=== PATIENT | female | born 1985 | race Caucasian/White ===

== ENCOUNTER 2018-03-06 21:24 | Emergency (ER) | payer SELFPAY ==
[~2018-03-06] VITALS: Ht 165.1 cm; Wt 90.7 kg
[~2018-03-06 21:24] MED LIST: BENZ100C PO; CEPH-264 PO; IBUP-1060 PO; PROAIR HFA8.5 GM INH
[2018-03-06 21:30] VITALS: BP 134/69
--- NOTE | 2018-03-06 21:38 | PHYS DOC ---
Past Medical History Past Medical History: No Pertinent History Past Surgical History: Tubal ligation Alcohol Use: None Drug Use: None Adult General Chief Complaint Chief Complaint: BACK PAIN OR INJURY HPI HPI Patient is a 32 year old F who presents with lower back pain that radiates to her right leg. She denies injury. Onset about 2-3 days ago. Hx of back pain that is usually relieved by ibuprofen and biofreeze. No relief from OTC at this time. She denies loss of bladder or bowel control. Denies groin numbness. Review of Systems Review of Systems Constitutional: Denies fever or chills [] Eyes: Denies change in visual acuity, redness, or eye pain [] HENT: Denies nasal congestion or sore throat [] Respiratory: Denies cough or shortness of breath [] Cardiovascular: No additional information not addressed in HPI [] GI: Denies abdominal pain, nausea, vomiting, bloody stools or diarrhea [] : Denies dysuria or hematuria [] Musculoskeletal: Denies back pain or joint pain [] Integument: Denies rash or skin lesions [] Neurologic: Denies headache, focal weakness or sensory changes [] Endocrine: Denies polyuria or polydipsia [] All other systems were reviewed and found to be within normal limits, except as documented in this note. Current Medications Current Medications Current Medications Medications (Trade) Dose Ordered Sig/Emerald Start Time Stop Time Status Last Admin Dose Admin Acetaminophen/ Hydrocodone Bitart (Lortab 5/325) 1 tab 1X ONCE 03/06/18 22:00 03/06/18 22:01 DC Cyclobenzaprine HCl (Flexeril) 10 mg 1X ONCE 03/06/18 22:00 03/06/18 22:01 DC Allergies Allergies Allergies Coded Allergies Type Severity Reaction Last Updated Verified Sulfa (Sulfonamide Antibiotics) Allergy Unknown 10/26/13 Yes Physical Exam Physical Exam Constitutional: Well developed, well nourished, no acute distress, non-toxic appearance. [] HENT: Normocephalic, atraumatic, bilateral external ears normal, oropharynx moist, no oral exudates, nose normal. [] Eyes: PERRLA, EOMI, conjunctiva normal, no discharge. [] Neck: Normal range of motion, no tenderness, supple, no stridor. [] Cardiovascular:Heart rate regular rhythm, no murmur [] Lungs & Thorax: Bilateral breath sounds clear to auscultation [] Abdomen: Bowel sounds normal, soft, no tenderness, no masses, no pulsatile masses. [] Skin: Warm, dry, no erythema, no rash. [] Back: No tenderness, no CVA tenderness. [] Extremities: No tenderness, no cyanosis, no clubbing, ROM intact, no edema. [] Neurologic: Alert and oriented X 3, normal motor function, normal sensory function, no focal deficits noted. [] Psychologic: Affect normal, judgement normal, mood normal. [] EKG EKG [] Radiology/Procedures Radiology/Procedures [] Course & Med Decision Making Course & Med Decision Making Pertinent Labs and Imaging studies reviewed. (See chart for details) Plan: norco rx, flexeril rx, f/u with PCP, return precautions reviewed Dragon Disclaimer Dragon Disclaimer This electronic medical record was generated, in whole or in part, using a voice recognition dictation system. Departure Departure Impression: Primary Impression: Back pain with sciatica Disposition: HOME, SELF-CARE Condition: GOOD Referrals: NO PCP (PCP) Patient Instructions: Back Exercises, Back Pain, Adult Scripts Cyclobenzaprine Hcl (CYCLOBENZAPRINE HCL) 10 Mg Tablet 1 TAB PO TID, #30 TAB Prov: KERI AZEVEDO APRN 03/06/18 Hydrocodone/Apap 5-325 (NORCO 5-325 TABLET) 1 Each Tablet 1 TAB PO PRN Q6HRS PRN for PAIN, #14 TAB 0 Refills Prov: KERI AZEVEDO APRN 03/06/18 KERI AZEVEDO APRN Mar 06, 2018 21:38
[2018-03-06] MEDS ORDERED: HYDR-971 PO (21:44)
[2018-03-06] MEDS ORDERED: CYCL10TA2 PO (21:48)
[2018-03-06] MEDS ORDERED: HYDROcodone/APAP 5/325MG 1 TAB TABLET PO ONE (22:00)
[2018-03-06] MEDS ORDERED: CYCLOBENZAPRINE 10 MG TABLET. PO ONE (22:00)
== END 2018-03-06 22:21 | disposition home or self-care (01) ==
LOC: ER 21:24
DX: M54.41 Lumbago with sciatica, right side (principal); Z88.2 Allergy status to sulfonamides; Z98.51 Tubal ligation status
CPT/HCPCS: 99283

== ENCOUNTER 2018-04-07 16:52 | Emergency (ER) | payer SELFPAY ==
[~2018-04-07] VITALS: Ht 165.1 cm; Wt 90.7 kg
[~2018-04-07 16:52] MED LIST changes: +CYCL10TA2 PO; +HYDR-971 PO
[2018-04-07] MEDS ORDERED: IV NORMAL SALINE 1000ML BAG 1,000 ML IV ONE (17:15)
--- NOTE | 2018-04-07 17:23 | PHYS DOC ---
Past Medical History Past Medical History: Kidney Stone Past Surgical History: Tubal ligation, Other Additional Past Surgical Histo: URETERAL STENT Alcohol Use: None Drug Use: None Adult General Chief Complaint Chief Complaint: WEAKNESS/GENERALIZED HPI HPI 32-year-old female presents to ER with complaints of nausea and vomiting, intermittent dizziness, decreased appetite, and generalized fatigue. Patient reports symptoms started this morning. Pt denies CP/palpitations. She reports vomiting x1 today denying diarrhea, fever/chills, or abd pain. Pt denies urinary sxs- she reports she had right side urinary stent placed 1 month ago at [facility] for kidney stone. She reports she was on antibiotics for 10 days for UTI following stent placement. She reports her son has been sick with an ear infection otherwise no other family members have been sick. Patient reports her boyfriend has been in the hospital since Sunday and she has been staying in the hospital with him- he was admitted for compartment syndrome and she denies he has been ill with sxs similar to her's. LMP 1-1/2 weeks ago denies vaginal symptoms. Review of Systems Review of Systems Constitutional: Denies fever or chills. Reports generalized fatigue Eyes: Denies change in visual acuity, redness, or eye pain [] HENT: Denies nasal congestion or sore throat [] Respiratory: Denies cough or shortness of breath [] Cardiovascular: Denies CP/palpitations GI: Denies bloody stools or diarrhea. Reports rt lower abd pain which has been ongoing x1 mo with no acute changes. Reports nausea with 1 episode of vomiting. : Denies dysuria or hematuria. Denies vaginal sxs Musculoskeletal: Reports rt lower back pain for past 1 mo. prior to urinary stent placement- denies acute changes. Denies joint pain [] Integument: Denies rash, swelling, or skin lesions [] Neurologic: Denies headache, focal weakness or sensory changes. Reports dizziness All other systems were reviewed and found to be within normal limits, except as documented in this note. Current Medications Current Medications Current Medications Medications (Trade) Dose Ordered Sig/Emerald Start Time Stop Time Status Last Admin Dose Admin Ceftriaxone Sodium 50 ml @ 100 mls/hr 1X ONCE 04/07/18 19:00 04/07/18 19:29 DC 04/07/18 19:13 100 MLS/HR Dexamethasone Sodium Phosphate (Decadron) 8 mg 1X ONCE 04/07/18 18:45 04/07/18 18:46 DC 04/07/18 18:55 8 MG Diphenhydramine HCl (Benadryl) 12.5 mg 1X ONCE 04/07/18 18:45 04/07/18 18:46 DC 04/07/18 18:55 12.5 MG Ondansetron HCl (Zofran) 4 mg 1X ONCE 04/07/18 18:45 04/07/18 18:46 DC 04/07/18 18:55 4 MG Sodium Chloride 1,000 ml @ 1,000 mls/hr 1X ONCE 04/07/18 17:15 04/07/18 18:14 DC 04/07/18 17:26 1,000 MLS/HR Allergies Allergies Allergies Coded Allergies Type Severity Reaction Last Updated Verified Sulfa (Sulfonamide Antibiotics) Allergy Unknown 10/26/13 Yes Physical Exam Physical Exam Constitutional: Well developed, well nourished, no acute distress, non-toxic appearance. Appears fatigued on initial exam. Clear speech HENT: Normocephalic, atraumatic, mucous membranes pink/moist, no oral exudates, nose normal. [] Eyes: PERRLA, no nystagmus, conjunctiva normal, no discharge. [] Neck: Normal range of motion, no tenderness, supple Cardiovascular:Heart rate regular rhythm, no murmur [] Lungs & Thorax: Bilateral breath sounds clear to auscultation. Resp. equal/ nonlabored Abdomen: Bowel sounds normal, soft- nondistended, tender to palp. rt lower abd which she reports has been ongoing x1 mo with no acute changes, no masses Skin: Warm, dry, no erythema, no rash. [] Back: No tenderness, no CVA tenderness. [] Extremities: No tenderness, no cyanosis, no clubbing, ROM intact, no edema. [] Neurologic: Alert and oriented X 3, normal motor function, normal sensory function, no focal deficits noted. [] Psychologic: Affect normal, judgement normal, mood normal. [] Current Patient Data Vital Signs Vital Signs Date Time Temp Pulse Resp B/P (MAP) Pulse Ox O2 Delivery O2 Flow Rate FiO2 04/07/18 20:04 63 04/07/18 19:34 97 04/07/18 16:58 97.7 20 120/88 (99) Room Air 97.7 Lab Values Laboratory Tests Test 04/07/18 17:18 04/07/18 18:29 04/07/18 18:36 White Blood Count 7.4 x10^3/uL (4.0-11.0) Red Blood Count 4.80 x10^6/uL (3.50-5.40) Hemoglobin 13.2 g/dL (12.0-15.5) Hematocrit 38.4 % (36.0-47.0) Mean Corpuscular Volume 80 fL (79-100) Mean Corpuscular Hemoglobin 28 pg (25-35) Mean Corpuscular Hemoglobin Concent 35 g/dL (31-37) Red Cell Distribution Width 12.8 % (11.5-14.5) Platelet Count 241 x10^3/uL (140-400) Neutrophils (%) (Auto) 52 % (31-73) Lymphocytes (%) (Auto) 39 % (24-48) Monocytes (%) (Auto) 6 % (0-9) Eosinophils (%) (Auto) 2 % (0-3) Basophils (%) (Auto) 1 % (0-3) Neutrophils # (Auto) 3.9 x10^3uL (1.8-7.7) Lymphocytes # (Auto) 2.9 x10^3/uL (1.0-4.8) Monocytes # (Auto) 0.5 x10^3/uL (0.0-1.1) Eosinophils # (Auto) 0.1 x10^3/uL (0.0-0.7) Basophils # (Auto) 0.1 x10^3/uL (0.0-0.2) Sodium Level 142 mmol/L (136-145) Potassium Level 4.0 mmol/L (3.5-5.1) Chloride Level 102 mmol/L (98-107) Carbon Dioxide Level 31 mmol/L (21-32) Anion Gap 9 (6-14) Blood Urea Nitrogen 9 mg/dL (7-20) Creatinine 0.9 mg/dL (0.6-1.0) Estimated GFR (Cockcroft-Gault) 73.5 BUN/Creatinine Ratio 10 (6-20) Glucose Level 95 mg/dL (70-99) Calcium Level 9.9 mg/dL (8.5-10.1) Total Bilirubin 0.3 mg/dL (0.2-1.0) Aspartate Amino Transferase (AST) 24 U/L (15-37) Alanine Aminotransferase (ALT) 44 U/L (14-59) Alkaline Phosphatase 66 U/L (46-116) Total Protein 8.0 g/dL (6.4-8.2) Albumin 3.7 g/dL (3.4-5.0) Albumin/Globulin Ratio 0.9 (1.0-1.7) L Urine Collection Type Unknown Urine Color Yellow Urine Clarity Cloudy Urine pH 6.0 Urine Specific [place] 1.020 Urine Protein 30 mg/dL (NEG-TRACE) Urine Glucose (UA) Negative mg/dL (NEG) Urine Ketones (Stick) Negative mg/dL (NEG) Urine Blood Large (NEG) Urine Nitrite Positive (NEG) Urine Bilirubin Negative (NEG) Urine Urobilinogen Dipstick 1.0 mg/dL (0.2 mg/dL) Urine Leukocyte Esterase Large (NEG) Urine RBC 11-20 /HPF (0-2) Urine WBC Tntc /HPF (0-4) Urine Squamous Epithelial Cells Mod /LPF Urine Bacteria Many /HPF (0-FEW) Urine Mucus Mod /LPF POC Urine HCG, Qualitative Hcg negative (Negative) Laboratory Tests 04/07/18 17:18 Laboratory Tests 04/07/18 17:18 Microbiology 04/07/18 Urine Culture - Preliminary, Resulted 04/07/18 Urine Culture Result 1 (GRIFFIN) - Preliminary, Resulted EKG EKG [] Radiology/Procedures Radiology/Procedures [] Course & Med Decision Making Course & Med Decision Making Pertinent Labs reviewed. (See chart for details) 1831: Discussed lab results with pt- unremarkable results WBCs NL at 7.4 and renal function NL with BUN/Cr 9/0.9. Pt is A&Ox3 and reports she now has DAVIS which is similar to previous migraines she has experienced denying any focal neuro deficits- she has clear speech and denies any vision changes. Denies increased dizziness reporting her sxs had improved w/IV flds. Pt is ambulatory to with steady gait. UA being obtained. Will provide pt with dose of Decadron and benedryl while in ER for headache- she is preferring no toradol as she is scheduled for surgery on Sun. for stent removal. 1850: Discussed UA results with pt- positive nitrates, lg blood/leuks with micro showing 11-20 RBCs and tntc WBCs- some contamination with squamous/ bacteria noted. Discussed giving dose of IV Rocephin while in ER for UTI- discussed complicated UTI w/pt as she had recent ureteral stent placed and dx'd kidney stone. Admission was offered for further care/evaluation- she is not wanting admission as she has a young son to care for. Discussed plans for Keflex Rx for home and she is to call her urologist Dr. Sood at [facility] in morning. Pt advised that if sxs worsen she is to return to ER or with any concerns. Pt reports her dizziness improved following IV flds but she does continue to have DAVIS- with some relief following IV Decadron/Benedryl. Discharge instructions were discussed and education provided on s&s to return to ER for. Pt's case and plan of care was discussed with Dr. Lopez. Ar Disclaimer Ar Disclaimer This electronic medical record was generated, in whole or in part, using a voice recognition dictation system. Departure Departure Impression: Primary Impression: Dizziness Additional Impressions: Headache UTI (urinary tract infection) Disposition: HOME, SELF-CARE Condition: STABLE Referrals: IFRAH WHITAKER (PCP) Patient Instructions: Dizziness, Migraine Headache, Urinary Tract Infection Additional Instructions: Drink plenty of water. Tylenol for fever/pain control. Call your urologist first thing in morning to discuss UTI and Emergency Department visit. You were given dose of Rocephin while in the ER. Return to ER if symptoms worsen or with concerns. Scripts Cephalexin (KEFLEX) 500 Mg Capsule 1 CAP PO BID, #14 CAP 0 Refills Prov: TOLU MEDEROS APRN 04/07/18 Attending Signature Attending Signature I have reviewed the PA/SUPERVISOR ELECTROLYTIC TINNING's note and plan of care. I was available for consultation as needed during the patient's visit in the emergency department. I agree with the clinical impression, plan, and disposition. Problem Qualifiers TOLU MEDEROS APRN Apr 07, 2018 17:23 ELIZABETH OLPEZ DO Apr 10, 2018 11:16
[2018-04-07 17:28] LABS: BASO # 0.1 x10^3/uL (0.0-0.2); BASO % 1 % (0-3); EOS # 0.1 x10^3/uL (0.0-0.7); EOS % 2 % (0-3); HEMATOCRIT 38.4 % (36.0-47.0); HEMOGLOBIN 13.2 g/dL (12.0-15.5); LYMPH # 2.9 x10^3/uL (1.0-4.8); LYMPH % 39 % (24-48); MEAN CORPUSCULAR HEMOGLOBIN 28 pg (25-35); MEAN CORPUSCULAR HGB CONC 35 g/dL (31-37); MEAN CORPUSCULAR VOLUME 80 fL (79-100); MONO # 0.5 x10^3/uL (0.0-1.1); MONO % 6 % (0-9); NEUT # 3.9 x10^3uL (1.8-7.7); NEUT % 52 % (31-73); PLATELET COUNT 241 x10^3/uL (140-400); RED CELL DISTRIBUTION WIDTH 12.8 % (11.5-14.5); WHITE BLOOD COUNT 7.4 x10^3/uL (4.0-11.0)
[2018-04-07 17:34] LABS: CALCIUM 9.9 mg/dL (8.5-10.1); CREATININE 0.9 mg/dL (0.6-1.0); GFR 73.5
--- NOTE | 2018-04-07 17:37 | EKG ---
[facility] [address] [place] [address] Test Date: 2018-04-07 Test Time: 17:33:45 Pat Name: MIGEL WALDROP Department: Room: Gender: F Licensed Insurance Agent: TW : [id number] Requested By: TOLU MEDEROS Order Number: [id number] Reading MD: German Guerin Measurements Intervals [place] Rate: 68 P: 0 OK: 150 QRS: -1 QRSD: 94 T: 6 QT: 416 QTc: 447 Interpretive Statements SINUS RHYTHM LEFTWARD AXIS Electronically Signed On 04-09-2018 11:04:26 CDT by German Guerin
[2018-04-07 17:40] LABS: ALBUMIN 3.7 g/dL (3.4-5.0); ALBUMIN/GLOBULIN RATIO 0.9 (1.0-1.7); TOTAL BILIRUBIN 0.3 mg/dL (0.2-1.0)
[2018-04-07 18:44] LABS: BILIRUBIN,URINE NEGATIVE (NEG); CLARITY,URINE CLOUDY; COLOR,URINE YELLOW; NITRITE,URINE POSITIVE (NEG); PROTEIN,URINE 30 mg/dL (NEG-TRACE)
[2018-04-07] MEDS ORDERED: diphenhydrAMINE 50 MG/ML VIAL IVP ONE (18:45)
[2018-04-07] MEDS ORDERED: ONDANSETRON PF 4 MG/2 ML VIAL. IV ONE (18:45)
[2018-04-07] MEDS ORDERED: DEXAMETHASONE SOD PHOS 20 MG/5 ML VIAL. IV ONE (18:45)
[2018-04-07 18:55] LABS: BACTERIA,URINE MANY /HPF (0-FEW); WBC,URINE TNTC /HPF (0-4)
[2018-04-07 18:56] LABS: SQUAMOUS EPITHELIAL CELL,UR MOD /LPF
[2018-04-07] MEDS ORDERED: CEPH-264 PO (19:35)
[2018-04-07 20:04] VITALS: BP 114/67
== END 2018-04-07 20:14 | disposition home or self-care (01) ==
LOC: ER 16:52
DX: N39.0 Urinary tract infection, site not specified (principal); R42 Dizziness and giddiness; R51 Headache; Z98.51 Tubal ligation status; Z87.442 Personal history of urinary calculi; Z88.2 Allergy status to sulfonamides
CPT/HCPCS: 36415; 80053; 81001; 81025; 85025; 93005; 96361; 96365; 96375; 99285; J0690; J1100; J1200; J2405; J7030

== ENCOUNTER 2018-04-09 07:46 | Emergency (ER) | payer SELFPAY ==
[~2018-04-09] VITALS: Ht 165.1 cm; Wt 90.7 kg
--- NOTE | 2018-04-09 08:06 | PHYS DOC ---
Past Medical History Past Medical History: Kidney Stone Past Surgical History: Tubal ligation, Other Additional Past Surgical Histo: URETERAL STENT Alcohol Use: None Drug Use: None Adult General Chief Complaint Chief Complaint: DIZZY/LIGHT HEADED HPI HPI Patient is a 32 year old female who presents with generalized weakness. Patient was seen in this emergency department 2 days ago and diagnosed with a urinary tract infection. She was discharged home on Keflex. Patient states she is also being followed at [facility] for known renal lithiasis. She is scheduled to have intervention tomorrow to remove a stone. Today, she presents to the emergency department complaining of generalized weakness. She has no complaints of focal weakness. Patient states she simply doesn't, "feel good." She does not complain of flank pain or back pain. She does not complain of urinary symptoms. She has no pelvic pain. No fever or chills. No cough. All pain. Review of Systems Review of Systems Constitutional: Denies fever or chills Eyes: Denies change in visual acuity HENT: Denies nasal congestion Respiratory: Denies cough or shortness of breath Cardiovascular: No additional information not addressed in HPI GI: Denies abdominal pain : Denies hematuria Musculoskeletal: Denies back pain Integument: Denies rash Neurologic: Denies headache Endocrine: Denies polyuria All other systems were reviewed and found to be within normal limits, except as documented in this note. Current Medications Current Medications Current Medications Medications (Trade) Dose Ordered Sig/Emerald Start Time Stop Time Status Last Admin Dose Admin Levofloxacin (Levaquin) 500 mg 1X ONCE 04/09/18 09:00 04/09/18 09:02 DC Sodium Chloride 1,000 ml @ 1,000 mls/hr 1X ONCE 04/09/18 08:00 04/09/18 08:59 DC 04/09/18 08:20 1,000 MLS/HR Allergies Allergies Allergies Coded Allergies Type Severity Reaction Last Updated Verified Sulfa (Sulfonamide Antibiotics) Allergy Unknown 10/26/13 Yes Physical Exam Physical Exam Constitutional: Well developed, well nourished, no acute distress, non-toxic appearance HENT: Normocephalic, atraumatic, bilateral external ears normal, oropharynx moist Eyes: PERRLA, EOMI, conjunctiva normal Neck: Normal range of motion, no tenderness Cardiovascular:Heart rate regular rhythm, no murmur Lungs & Thorax: Bilateral breath sounds clear to auscultation Abdomen: Bowel sounds normal, soft, no tenderness Skin: Warm, dry, no erythema, no rash Back: No tenderness, no CVA tenderness Extremities: No edema Neurologic: Alert and oriented X 3 Psychologic: Affect normal Current Patient Data Vital Signs Vital Signs Date Time Temp Pulse Resp B/P (MAP) Pulse Ox O2 Delivery O2 Flow Rate FiO2 04/09/18 08:25 82 14 97 04/09/18 07:52 98.0 114/75 (88) Room Air 98.0 Lab Values Laboratory Tests Test 04/09/18 08:04 04/09/18 08:13 04/09/18 08:20 Urine Color Yellow Urine Clarity Clear Urine pH 6.0 Urine Specific [place] 1.020 Urine Protein Negative mg/dL (NEG-TRACE) Urine Glucose (UA) Negative mg/dL (NEG) Urine Ketones (Stick) Negative mg/dL (NEG) Urine Blood Negative (NEG) Urine Nitrite Negative (NEG) Urine Bilirubin Negative (NEG) Urine Urobilinogen Dipstick 0.2 mg/dL (0.2 mg/dL) Urine Leukocyte Esterase Large (NEG) Urine RBC Fobs /HPF (0-2) Urine WBC Tntc /HPF (0-4) Urine Squamous Epithelial Cells Mod /LPF Urine Bacteria Mod /HPF (0-FEW) Urine Mucus Slight /LPF POC Urine HCG, Qualitative Hcg negative (Negative) White Blood Count 6.8 x10^3/uL (4.0-11.0) Red Blood Count 4.89 x10^6/uL (3.50-5.40) Hemoglobin 13.2 g/dL (12.0-15.5) Hematocrit 39.3 % (36.0-47.0) Mean Corpuscular Volume 81 fL (79-100) Mean Corpuscular Hemoglobin 27 pg (25-35) Mean Corpuscular Hemoglobin Concent 34 g/dL (31-37) Red Cell Distribution Width 12.6 % (11.5-14.5) Platelet Count 222 x10^3/uL (140-400) Neutrophils (%) (Auto) 56 % (31-73) Lymphocytes (%) (Auto) 34 % (24-48) Monocytes (%) (Auto) 8 % (0-9) Eosinophils (%) (Auto) 1 % (0-3) Basophils (%) (Auto) 2 % (0-3) Neutrophils # (Auto) 3.8 x10^3uL (1.8-7.7) Lymphocytes # (Auto) 2.3 x10^3/uL (1.0-4.8) Monocytes # (Auto) 0.5 x10^3/uL (0.0-1.1) Eosinophils # (Auto) 0.1 x10^3/uL (0.0-0.7) Basophils # (Auto) 0.1 x10^3/uL (0.0-0.2) Sodium Level 141 mmol/L (136-145) Potassium Level 4.0 mmol/L (3.5-5.1) Chloride Level 103 mmol/L (98-107) Carbon Dioxide Level 31 mmol/L (21-32) Anion Gap 7 (6-14) Blood Urea Nitrogen 12 mg/dL (7-20) Creatinine 0.9 mg/dL (0.6-1.0) Estimated GFR (Cockcroft-Gault) 73.5 Glucose Level 91 mg/dL (70-99) Calcium Level 9.4 mg/dL (8.5-10.1) Laboratory Tests 04/09/18 08:20 Laboratory Tests 04/09/18 08:20 EKG EKG [] Radiology/Procedures Radiology/Procedures [] Course & Med Decision Making Course & Med Decision Making Pertinent Labs and Imaging studies reviewed. (See chart for details) Patient is evaluated for generalized weakness in the setting of a UTI and known kidney stone. She is nontoxic in appearance. Her physical exam is otherwise unremarkable. She is in no distress. She had a CBC and BMP 2 days ago. Her urine was noted to be infected at that time. She was treated with Keflex. Today , will recheck BMP given her complaint of weakness. Will also check urinalysis. Will give IV fluids. 09:15: Patient feeling improved. Again, her CBC and BMP did not reveal any acute findings. She does continue to have pyuria despite being on antibiotics. Urine culture is added to her lab panel. Patient endorses subjectively that she has a kidney stone. A better antibiotic choice for UTI in the setting of stone is Levaquin. She is given 1 dose in the ER and will be discharged home on the same. She has follow-up with urology tomorrow at [facility]. She is advised to come back to the ER for any new or worsening symptoms. Ar Disclaimer Ar Disclaimer This electronic medical record was generated, in whole or in part, using a voice recognition dictation system. Departure Departure Referrals: IFRAH WHITAKER BC (PCP) ALDAIR MULLINS DO Apr 09, 2018 08:06
[2018-04-09] MEDS: IV NORMAL SALINE 1000ML BAG 1,000 ML IV ONE (08:20)
[2018-04-09 08:25] LABS: BILIRUBIN,URINE NEGATIVE (NEG); CLARITY,URINE CLEAR; COLOR,URINE YELLOW; NITRITE,URINE NEGATIVE (NEG); PROTEIN,URINE NEGATIVE (NEG-TRACE); UROBILINOGEN,URINE 0.2 mg/dL (0.2 mg/dL)
[2018-04-09 08:29] LABS: SQUAMOUS EPITHELIAL CELL,UR MOD /LPF
[2018-04-09 08:29] LABS: BASO # 0.1 x10^3/uL (0.0-0.2); BASO % 2 % (0-3); EOS # 0.1 x10^3/uL (0.0-0.7); EOS % 1 % (0-3); HEMATOCRIT 39.3 % (36.0-47.0); HEMOGLOBIN 13.2 g/dL (12.0-15.5); LYMPH # 2.3 x10^3/uL (1.0-4.8); LYMPH % 34 % (24-48); MEAN CORPUSCULAR HEMOGLOBIN 27 pg (25-35); MEAN CORPUSCULAR HGB CONC 34 g/dL (31-37); MEAN CORPUSCULAR VOLUME 81 fL (79-100); MONO # 0.5 x10^3/uL (0.0-1.1); MONO % 8 % (0-9); NEUT # 3.8 x10^3uL (1.8-7.7); NEUT % 56 % (31-73); PLATELET COUNT 222 x10^3/uL (140-400); RED BLOOD COUNT 4.89 x10^6/uL (3.50-5.40); RED CELL DISTRIBUTION WIDTH 12.6 % (11.5-14.5); WHITE BLOOD COUNT 6.8 x10^3/uL (4.0-11.0)
[2018-04-09 08:30] LABS: BACTERIA,URINE MOD /HPF (0-FEW); WBC,URINE TNTC /HPF (0-4)
[2018-04-09 08:31] LABS: RBC,URINE FOBS /HPF (0-2)
[2018-04-09 08:37] LABS: CALCIUM 9.4 mg/dL (8.5-10.1); CREATININE 0.9 mg/dL (0.6-1.0); GFR 73.5
[2018-04-09] MEDS ORDERED: LEVO500T59 PO (09:13)
[2018-04-09 09:23] VITALS: BP 108/68
== END 2018-04-09 09:40 | disposition home or self-care (01) ==
LOC: ER 07:46
DX: N20.0 Calculus of kidney (principal); R42 Dizziness and giddiness; R53.1 Weakness; Z87.442 Personal history of urinary calculi; Z98.51 Tubal ligation status; Z88.2 Allergy status to sulfonamides
CPT/HCPCS: 36415; 80048; 81001; 81025; 85025; 87086; 96360; 99284; J7030

== ENCOUNTER 2018-06-10 14:58 | Emergency (ER) | payer OTHER ==
[~2018-06-10] VITALS: Ht 165.1 cm; Wt 88.5 kg
[~2018-06-10 14:58] MED LIST changes: +HYDR-3164 PO; -HYDR-971 PO; +LEVO500T59 PO
[2018-06-10 15:17] VITALS: BP 106/65
[2018-06-10] MEDS ORDERED: FLUT9.9S NS (15:25)
[2018-06-10] MEDS ORDERED: CEPH-264 PO (15:25)
--- NOTE | 2018-06-10 15:26 | PHYS DOC ---
Past Medical History Past Medical History: Kidney Stone, UTI Past Surgical History: Tubal ligation, Other Additional Past Surgical Histo: URETERAL STENT Alcohol Use: None Drug Use: None Adult General Chief Complaint Chief Complaint: EARACHE/EAR PAIN HPI HPI Patient is a 32 year old female who presents with bilateral earaches and a runny nose. The patient states that she has a long history of chronic ear infections. She denies any drainage from the ear canals, fever or sore throat. She denies any nausea or vomiting. Review of Systems Review of Systems Constitutional: Denies fever or chills [] Eyes: Denies change in visual acuity, redness, or eye pain [] HENT: See history of present illness Respiratory: Denies cough or shortness of breath [] Cardiovascular: No additional information not addressed in HPI [] Neurologic: Denies headache, focal weakness or sensory changes [] Endocrine: Denies polyuria or polydipsia [] All other systems were reviewed and found to be within normal limits, except as documented in this note. Allergies Allergies Allergies Coded Allergies Type Severity Reaction Last Updated Verified Sulfa (Sulfonamide Antibiotics) Allergy Unknown 10/26/13 Yes Physical Exam Physical Exam Constitutional: Well developed, well nourished, no acute distress, non-toxic appearance. [] HENT: Normocephalic, atraumatic, right tympanic membrane is normal, left tympanic membrane is erythematous, oropharynx moist, no oral exudates, nose normal. [] Eyes: PERRLA, EOMI, conjunctiva normal, no discharge. [] Neck: Normal range of motion, no tenderness, supple, no stridor. [] Cardiovascular:Heart rate regular rhythm, no murmur [] Lungs & Thorax: Bilateral breath sounds clear to auscultation [] Neurologic: Alert and oriented X 3, normal motor function, normal sensory function, no focal deficits noted. [] Psychologic: Affect normal, judgement normal, mood normal. [] Current Patient Data Vital Signs Vital Signs Date Time Temp Pulse Resp B/P (MAP) Pulse Ox O2 Delivery O2 Flow Rate FiO2 06/10/18 15:17 97.9 77 16 106/65 (79) 100 Room Air 97.9 EKG EKG [] Radiology/Procedures Radiology/Procedures [] Course & Med Decision Making Course & Med Decision Making Pertinent Labs and Imaging studies reviewed. (See chart for details) [] Dragon Disclaimer Dragon Disclaimer This electronic medical record was generated, in whole or in part, using a voice recognition dictation system. Departure Departure Impression: Primary Impression: Otitis media Additional Impression: Upper respiratory infection Referrals: IFRAH WHITAKER BC (PCP) Patient Instructions: Otitis Media, Adult, Upper Respiratory Infection, Adult Additional Instructions: Use the medications as directed. You may use [id number] cough and cold medication to help with symptom control. Follow-up with your primary care provider in one week if not improving or return to the emergency department if worsening. Scripts Fluticasone Propionate (Flonase Allergy Relief) 9.9 Ml [place].susp 2 SPRAYS NS DAILY for upper respiratory infection, #1 BOTTLE Prov: CUBA WILLS APRN 06/10/18 Cephalexin (KEFLEX) 500 Mg Capsule 1 CAP PO TID for infection, #30 CAP Prov: CUBA WILLS APRN 06/10/18 Attending Signature Attending Signature I have reviewed the PA/DIAGNOSTIC SALES SPECIALIST's note and plan of care. I was available for consultation as needed during the patient's visit in the emergency department. I agree with the clinical impression, plan, and disposition. Problem Qualifiers CUBA WILLS APRN Jun 10, 2018 15:26 ELIZABETH LOPEZ DO Jun 10, 2018 22:13
== END 2018-06-10 15:40 | disposition home or self-care (01) ==
LOC: ER 14:58
DX: H66.93 Otitis media, unspecified, bilateral (principal); J06.9 Acute upper respiratory infection, unspecified; Z88.2 Allergy status to sulfonamides
CPT/HCPCS: 99283

== ENCOUNTER 2018-09-04 19:32 | Emergency (ER) | payer OTHER ==
[~2018-09-04] VITALS: Ht 165.1 cm; Wt 88.5 kg
[~2018-09-04 19:32] MED LIST changes: +ALBU2.5V8 INH; +FLUT9.9S NS; -PROAIR HFA8.5 GM INH
[2018-09-04 20:29] VITALS: BP 143/63
[2018-09-04] MEDS ORDERED: HYDR-3164 PO (20:43)
[2018-09-04] MEDS ORDERED: IBUP-1007 PO (20:43)
--- NOTE | 2018-09-04 20:44 | PHYS DOC ---
Past Medical History Past Medical History: Kidney Stone, UTI Past Surgical History: Tubal ligation, Other Additional Past Surgical Histo: URETERAL STENT Alcohol Use: None Drug Use: None Adult General Chief Complaint Chief Complaint: DENTAL PROBLEM HPI HPI Patient is a 32 year old female who presents with right upper and right lower dental caries that are painful left cold. Patient states she can get in with her dentist next week. Patient states been having pain for the last 3 days. Denies fever. Review of Systems Review of Systems Constitutional: Denies fever or chills [] Eyes: Denies change in visual acuity, redness, or eye pain [] HENT: Dental caries. Denies nasal congestion or sore throat [] Respiratory: Denies cough or shortness of breath [] Cardiovascular: No additional information not addressed in HPI [] GI: Denies abdominal pain, nausea, vomiting, bloody stools or diarrhea [] : Denies dysuria or hematuria [] Musculoskeletal: Denies back pain or joint pain [] Integument: Denies rash or skin lesions [] Neurologic: Denies headache, focal weakness or sensory changes [] All other systems were reviewed and found to be within normal limits, except as documented in this note. Allergies Allergies Allergies Coded Allergies Type Severity Reaction Last Updated Verified Sulfa (Sulfonamide Antibiotics) Allergy Unknown 10/26/13 Yes Physical Exam Physical Exam Constitutional: Well developed, well nourished, no acute distress, non-toxic appearance. [] HENT: Normocephalic, atraumatic, bilateral external ears normal, oropharynx moist, no oral exudates, nose normal. Right upper and lower molar dental caries. Slightly inflamed gum line. [] Eyes: PERRLA, EOMI, conjunctiva normal, no discharge. [] Neck: Normal range of motion, no tenderness, supple, no stridor. [] Cardiovascular:Heart rate regular rhythm, no murmur [] Lungs & Thorax: Bilateral breath sounds clear to auscultation [] Abdomen: Bowel sounds normal, soft, no tenderness, no masses, no pulsatile masses. [] Skin: Warm, dry, no erythema, no rash. [] Back: No tenderness, no CVA tenderness. [] Extremities: No tenderness, no cyanosis, no clubbing, ROM intact, no edema. [] Neurologic: Alert and oriented X 3, normal motor function, normal sensory function, no focal deficits noted. [] Psychologic: Affect normal, judgement normal, mood normal. [] EKG EKG [] Radiology/Procedures Radiology/Procedures [] Course & Med Decision Making Course & Med Decision Making Patient is a 32 year old female who presents with right upper and right lower dental caries that are painful left cold. Patient states she can get in with her dentist next week. Patient states been having pain for the last 3 days. Denies fever. No facial swelling. The gumline is slightly inflamed the patient has right upper and lower dental caries the back molars that are black. Afebrile. Patient given prescription for [place] and she is to follow-up with her dentist next week as scheduled. Dragon Disclaimer Dragon Disclaimer This electronic medical record was generated, in whole or in part, using a voice recognition dictation system. Departure Departure Impression: Primary Impression: Pain, dental Disposition: HOME, SELF-CARE Condition: STABLE Referrals: IFRAH WHITAKER (PCP) Patient Instructions: Dental Caries Additional Instructions: Follow up with dentist as planned. Take medication as prescribed. Scripts Ibuprofen (IBUPROFEN) 600 Mg Tablet 600 MG PO PRN Q6HRS PRN for INFLAMMATION, #15 TAB Prov: EMMANUEL MOORE APRN 09/04/18 Hydrocodone/Apap 5-325 (NORCO 5-325 TABLET) 1 Each Tablet 1 TAB PO PRN Q6HRS PRN for PAIN, #10 TAB 0 Refills Prov: EMMANUEL MOORE APRN 09/04/18 EMMANUEL MOORE APRN Sep 04, 2018 20:44
== END 2018-09-04 20:52 | disposition home or self-care (01) ==
LOC: ER 19:32
DX: K08.89 Other specified disorders of teeth and supporting structures (principal); K02.9 Dental caries, unspecified; Z88.2 Allergy status to sulfonamides
CPT/HCPCS: 99283

== ENCOUNTER 2019-07-01 19:36 | Emergency (ER) | payer SELFPAY ==
[~2019-07-01] VITALS: Ht 167.6 cm; Wt 83.9 kg
[~2019-07-01 19:36] MED LIST changes: +IBUP-1007 PO
[2019-07-01 19:50] VITALS: BP 123/81
--- NOTE | 2019-07-01 20:22 | PHYS DOC ---
Past Medical History Past Medical History: Kidney Stone, UTI Past Surgical History: Tubal ligation, Other Additional Past Surgical Histo: URETERAL STENT Alcohol Use: None Drug Use: None Adult General Chief Complaint Chief Complaint: DENTAL PROBLEM HPI HPI Patient is a 33 year old female who presents with right upper dental pain has been ongoing for 3 days. The patient states she has a dental appointment scheduled on Sunday. The patient also states been having runny nose and congestion. Reports her pain as 8 out of 10 in severity and sharp. Review of Systems Review of Systems Constitutional: Denies fever or chills [] Eyes: Denies change in visual acuity, redness, or eye pain [] HENT: Reports nasal congestion and runny nose. Reports Dental pain. Respiratory: Denies cough or shortness of breath [] Cardiovascular: No additional information not addressed in HPI [] GI: Denies abdominal pain, nausea, vomiting, bloody stools or diarrhea [] : Denies dysuria or hematuria [] Musculoskeletal: Denies back pain or joint pain [] Integument: Denies rash or skin lesions [] Neurologic: Denies headache, focal weakness or sensory changes [] Endocrine: Denies polyuria or polydipsia [] Complete systems were reviewed and found to be within normal limits, except as documented in this note. Allergies Allergies Allergies Coded Allergies Type Severity Reaction Last Updated Verified Sulfa (Sulfonamide Antibiotics) Allergy Unknown 10/26/13 Yes Physical Exam Physical Exam Constitutional: Well developed, well nourished, no acute distress, non-toxic appearance. [] HENT: Normocephalic, atraumatic, bilateral external ears normal, oropharynx moist, no oral exudates, nose normal. Third molar has filling that appears to be not flush. Eyes: PERRLA, EOMI, conjunctiva normal, no discharge. [] Neck: Normal range of motion, no tenderness, supple, no stridor. [] Cardiovascular:Heart rate regular rhythm, no murmur [] Lungs & Thorax: Bilateral breath sounds clear to auscultation [] Skin: Warm, dry, no erythema, no rash. [] Neurologic: Alert and oriented X 3, normal motor function, normal sensory function, no focal deficits noted. [] Psychologic: Affect normal, judgement normal, mood normal. [] Current Patient Data Vital Signs Vital Signs Date Time Temp Pulse Resp B/P (MAP) Pulse Ox O2 Delivery O2 Flow Rate FiO2 07/01/19 19:50 98.7 80 16 123/81 (95) 97 Room Air 98.7 EKG EKG [] Radiology/Procedures Radiology/Procedures [] Course & Med Decision Making Course & Med Decision Making Pertinent Labs and Imaging studies reviewed. (See chart for details) A medical screening exam was performed on this patient and the patient does not appear to be having a medical emergency. Her symptoms are not of sufficient severity and within reasonable medical probability it is unlikely the absence of immediate medical attention would result in placing the health of the individual (or, with respect to a woman, the health of the woman or her unborn child) in serious jeopardy, serious impairment to bodily functions, or serious dysfunction of any bodily organ or part. If , the patient is not in labor Dragon Disclaimer Dragon Disclaimer This electronic medical record was generated, in whole or in part, using a voice recognition dictation system. Departure Departure Impression: Primary Impression: Encounter for medical screening examination Additional Impression: Pain, dental Disposition: 01 HOME, SELF-CARE Condition: STABLE Referrals: NO PCP (PCP) Patient Instructions: Medical Screening Exam Additional Instructions: Thank you for visiting [facility]. We appreciate you trusting us with your care. If any additional problems come up don't hesitate to return to visit us. Please follow up with your primary care provider so they can plan additional care if needed and know about the problem that you had. If symptoms worsen come back to the Emergency Department. Any concerning symptoms that start such as chest pain, shortness of air, weakness or numbness on one side of the body, running high fevers or any other concerning symptoms return to the ER. Problem Qualifiers ELIZABETH CASTILLO APRN Jul 01, 2019 20:22
== END 2019-07-01 20:28 | disposition home or self-care (01) ==
LOC: ER 19:36
DX: K08.89 Other specified disorders of teeth and supporting structures (principal); Z98.51 Tubal ligation status; Z87.442 Personal history of urinary calculi; Z88.2 Allergy status to sulfonamides
CPT/HCPCS: 99281-25

== ENCOUNTER 2019-07-30 20:14 | Emergency (ER) | payer SELFPAY ==
--- NOTE | 2019-07-30 21:55 | PHYS DOC ---
Past Medical History Past Medical History: Kidney Stone, UTI Past Surgical History: Tubal ligation, Other Additional Past Surgical Histo: URETERAL STENT Alcohol Use: None Drug Use: None Adult General Chief Complaint Chief Complaint: ABDOMINAL PAIN HPI HPI Patient is a 33 year old female with history of kidneys stones presents with right flank pain intermittent 5 days. Pain is described as sharp, radiates to groin in last for minutes to hours at a time and is rated moderate to severe. Social with nausea and decreased appetite. Patient denies abdominal tenderness. No fever chills or sweats. Does report decreased urine output. No urinary frequency urgency or burning. No hematuria. Last menstrual period was 2 days ago. Patient states symptoms are similar to prior kidney stones. [] Review of Systems Review of Systems Review symptoms as per history of present illness. All other systems were reviewed and found to be within normal limits, except as documented in this note. Current Medications Current Medications Current Medications Medications (Trade) Dose Ordered Sig/Emerald Start Time Stop Time Status Last Admin Dose Admin Ceftriaxone Sodium (Rocephin) 1 gm 1X ONCE 07/30/19 23:00 07/30/19 23:01 07/30/19 22:52 1 GM Morphine Sulfate (Morphine Sulfate) 4 mg 1X ONCE 07/30/19 22:15 07/30/19 22:16 DC 07/30/19 22:02 4 MG Ondansetron HCl (Zofran) 4 mg 1X ONCE 07/30/19 22:15 07/30/19 22:16 DC 07/30/19 22:01 4 MG Sodium Chloride 1,000 ml @ 1,000 mls/hr 1X ONCE 07/30/19 22:15 07/30/19 23:14 07/30/19 22:01 1,000 MLS/HR Allergies Allergies Allergies Coded Allergies Type Severity Reaction Last Updated Verified Sulfa (Sulfonamide Antibiotics) Allergy Unknown 10/26/13 Yes Physical Exam Physical Exam Constitutional: Well developed, well nourished, moderate discomfort secondary pain. [] HENT: Normocephalic, atraumatic, bilateral external ears normal, oropharynx moist, no oral exudates, nose normal. [] Eyes: PERRLA, EOMI, conjunctiva normal, no discharge. [] Neck: Normal range of motion, no tenderness, supple, no stridor. [] Cardiovascular:Heart rate regular rhythm, no murmur [] Lungs & Thorax: Bilateral breath sounds clear to auscultation [] Abdomen: Bowel sounds normal, soft, no tenderness. [] Skin: Warm, dry, no erythema, no rash. [] Back: No tenderness, No CVA tenderness. [] Extremities: No tenderness, no edema. [] Neurologic: Alert and oriented X 3, normal motor function, normal sensory function, no focal deficits noted. [] Psychologic: Affect normal, judgement normal, mood normal. [] Current Patient Data Vital Signs Vital Signs Date Time Temp Pulse Resp B/P (MAP) Pulse Ox O2 Delivery O2 Flow Rate FiO2 07/30/19 22:02 22 99 Room Air 07/30/19 20:45 97.8 69 127/54 (78) 97.8 Lab Values Laboratory Tests Test 07/30/19 20:15 07/30/19 20:34 07/30/19 21:00 Urine Collection Type Unknown Urine Color Yellow Urine Clarity Clear Urine pH 7.0 Urine Specific [place] 1.025 Urine Protein Negative mg/dL (NEG-TRACE) Urine Glucose (UA) Negative mg/dL (NEG) Urine Ketones (Stick) Negative mg/dL (NEG) Urine Blood Negative (NEG) Urine Nitrite Negative (NEG) Urine Bilirubin Negative (NEG) Urine Urobilinogen Dipstick 0.2 mg/dL (0.2 mg/dL) Urine Leukocyte Esterase Large (NEG) Urine RBC 0 /HPF (0-2) Urine WBC 20-40 /HPF (0-4) Urine Squamous Epithelial Cells Mod /LPF Urine Bacteria Few /HPF (0-FEW) Urine Mucus Slight /LPF POC Urine HCG, Qualitative Hcg negative (Negative) White Blood Count 6.5 x10^3/uL (4.0-11.0) Red Blood Count 4.49 x10^6/uL (3.50-5.40) Hemoglobin 12.6 g/dL (12.0-15.5) Hematocrit 36.7 % (36.0-47.0) Mean Corpuscular Volume 82 fL (79-100) Mean Corpuscular Hemoglobin 28 pg (25-35) Mean Corpuscular Hemoglobin Concent 34 g/dL (31-37) Red Cell Distribution Width 13.3 % (11.5-14.5) Platelet Count 191 x10^3/uL (140-400) Neutrophils (%) (Auto) 57 % (31-73) Lymphocytes (%) (Auto) 32 % (24-48) Monocytes (%) (Auto) 8 % (0-9) Eosinophils (%) (Auto) 3 % (0-3) Basophils (%) (Auto) 1 % (0-3) Neutrophils # (Auto) 3.7 x10^3/uL (1.8-7.7) Lymphocytes # (Auto) 2.1 x10^3/uL (1.0-4.8) Monocytes # (Auto) 0.5 x10^3/uL (0.0-1.1) Eosinophils # (Auto) 0.2 x10^3/uL (0.0-0.7) Basophils # (Auto) 0.0 x10^3/uL (0.0-0.2) Sodium Level 141 mmol/L (136-145) Potassium Level 3.7 mmol/L (3.5-5.1) Chloride Level 107 mmol/L (98-107) Carbon Dioxide Level 31 mmol/L (21-32) Anion Gap 3 (6-14) L Blood Urea Nitrogen 14 mg/dL (7-20) Creatinine 0.7 mg/dL (0.6-1.0) Estimated GFR (Cockcroft-Gault) 97.6 BUN/Creatinine Ratio 20 (6-20) Glucose Level 87 mg/dL (70-99) Calcium Level 8.7 mg/dL (8.5-10.1) Total Bilirubin 0.2 mg/dL (0.2-1.0) Aspartate Amino Transferase (AST) 24 U/L (15-37) Alanine Aminotransferase (ALT) 27 U/L (14-59) Alkaline Phosphatase 61 U/L (46-116) Total Protein 6.8 g/dL (6.4-8.2) Albumin 3.6 g/dL (3.4-5.0) Albumin/Globulin Ratio 1.1 (1.0-1.7) Laboratory Tests 07/30/19 21:00 Laboratory Tests 07/30/19 21:00 EKG EKG [] Radiology/Procedures Radiology/Procedures [CT abdomen pelvis:] Course & Med Decision Making Course & Med Decision Making Pertinent Labs and Imaging studies reviewed. (See chart for details) [Symptoms similar to prior kidney stones. IV fluids pain medication antibiotics given. CT abdomen and pelvis ordered.] Ar Disclaimer Dragon Disclaimer This electronic medical record was generated, in whole or in part, using a voice recognition dictation system. Departure Departure Impression: Primary Impression: Acute right flank pain Additional Impression: UTI (urinary tract infection) Disposition: HOME, SELF-CARE Condition: IMPROVED Referrals: NO PCP (PCP) Patient Instructions: Flank Pain, [id number] Additional Instructions: Please increase fluids and take Tylenol for pain and Flexeril as needed for additional relief. Follow-up with your PCP in 2-3 days for reevaluation if symptoms persist Scripts Cyclobenzaprine Hcl (CYCLOBENZAPRINE HCL) 10 Mg Tablet 10 MG PO TID, #15 TAB Prov: ADELINA HOLLINGSWORTH DO 07/30/19 Problem Qualifiers ADELINA HOLLINGSWORTH DO Jul 30, 2019 21:55
[2019-07-30 22:02] LABS: BASO % 1 % (0-3); EOS # 0.2 x10^3/uL (0.0-0.7); EOS % 3 % (0-3); HEMATOCRIT 36.7 % (36.0-47.0); HEMOGLOBIN 12.6 g/dL (12.0-15.5); LYMPH # 2.1 x10^3/uL (1.0-4.8); LYMPH % 32 % (24-48); MEAN CORPUSCULAR HEMOGLOBIN 28 pg (25-35); MEAN CORPUSCULAR HGB CONC 34 g/dL (31-37); MEAN CORPUSCULAR VOLUME 82 fL (79-100); MONO # 0.5 x10^3/uL (0.0-1.1); MONO % 8 % (0-9); NEUT # 3.7 x10^3/uL (1.8-7.7); NEUT % 57 % (31-73); PLATELET COUNT 191 x10^3/uL (140-400); RED BLOOD COUNT 4.49 x10^6/uL (3.50-5.40); RED CELL DISTRIBUTION WIDTH 13.3 % (11.5-14.5); WHITE BLOOD COUNT 6.5 x10^3/uL (4.0-11.0)
[2019-07-30 22:03] LABS: BILIRUBIN,URINE NEGATIVE (NEG); CLARITY,URINE CLEAR; COLOR,URINE YELLOW; NITRITE,URINE NEGATIVE (NEG); PROTEIN,URINE NEGATIVE (NEG-TRACE); UROBILINOGEN,URINE 0.2 mg/dL (0.2 mg/dL)
[2019-07-30 22:08] LABS: SQUAMOUS EPITHELIAL CELL,UR MOD /LPF
[2019-07-30 22:09] LABS: BACTERIA,URINE FEW /HPF (0-FEW); RBC,URINE 0 /HPF (0-2); WBC,URINE 20-40 /HPF (0-4)
[2019-07-30 22:10] LABS: CALCIUM 8.7 mg/dL (8.5-10.1); CREATININE 0.7 mg/dL (0.6-1.0); GFR 97.6; POTASSIUM 3.7 mmol/L (3.5-5.1)
[2019-07-30] MEDS ORDERED: ONDANSETRON PF 4 MG/2 ML VIAL. IVP ONE (22:15)
[2019-07-30] MEDS ORDERED: MORPHINE SULFATE 4 MG/ML VIAL. IV ONE (22:15)
[2019-07-30] MEDS ORDERED: IV NORMAL SALINE 1000ML BAG 1,000 ML IV ONE (22:15)
[2019-07-30 22:16] LABS: ALBUMIN 3.6 g/dL (3.4-5.0); ALBUMIN/GLOBULIN RATIO 1.1 (1.0-1.7); TOTAL BILIRUBIN 0.2 mg/dL (0.2-1.0); TOTAL PROTEIN 6.8 g/dL (6.4-8.2)
--- NOTE | 2019-07-30 22:32 | RAD ---
Exam: CT abdomen and pelvis without contrast INDICATION: Right flank pain TECHNIQUE: Sequential axial images through the abdomen and pelvis obtained without IV contrast. Sagittal and coronal reformatted images were reconstructed from the axial data and reviewed. Comparisons: None FINDINGS: Heart size is normal. No pericardial effusion. Strandy opacities at the dependent portion the lungs likely representing atelectasis. No pleural effusion. Evaluation of solid organs is limited secondary to noncontrast technique. Liver, spleen, pancreas, gallbladder and adrenals are unremarkable. No perinephric inflammation or hydronephrosis. No renal or ureteral calculi. Bladder is partially distended and appears thin-walled. Uterus is not enlarged. There is a 4.6 cm cystic lesion in the left adnexa, likely ovarian in etiology. Trace free fluid noted in the pelvis. No free intra-abdominal air. Large and small bowel are unremarkable. Appendix is normal. No free intra-abdominal air or fluid. No obstruction. Abdominal aorta has a normal course and caliber. No enlarged abdominal lymph nodes are identified. No suspicious osseous lesions or acute fractures. IMPRESSION: 1. No renal or ureteral calculi. No evidence for obstructive uropathy. 2. Normal appendix. 3. A 4.6 cm cystic lesion left adnexa, likely ovarian in etiology however incompletely characterized on CT. Exposure: One or more of the following in the visualized dose reduction techniques were utilized for this examination: 1. Automated exposure control 2. Adjustment of the MA and/or KV according to patient size 3. Use of iterative of reconstructive technique Electronically signed by: Milo Concepcion MD (07/30/2019 10:28 PM) [facility]
[2019-07-30] MEDS ORDERED: cefTRIAXone IV Push 1 GM VIAL. IVP ONE (23:00)
[2019-07-30] MEDS ORDERED: CYCL10TA2 PO (23:05)
[2019-07-30 23:18] VITALS: BP 93/42
[2019-07-30] MEDS ORDERED: KETOROLAC 15 MG/ML VIAL. IVP ONE (23:30)
== END 2019-07-30 23:31 | disposition home or self-care (01) ==
LOC: ER 20:14
DX: N39.0 Urinary tract infection, site not specified (principal); R10.9 Unspecified abdominal pain; R11.0 Nausea; R63.0 Anorexia; Z87.442 Personal history of urinary calculi; Z98.51 Tubal ligation status; Z98.890 Other specified postprocedural states; Z88.2 Allergy status to sulfonamides; Z79.899 Other long term (current) drug therapy
CPT/HCPCS: 36415; 74176; 80053; 81001; 81025; 85025; 87086; 96374; 96375; 99285; J0696; J1885; J2270; J2405; J7030

== ENCOUNTER 2019-09-15 15:56 | Emergency (ER) | payer SELFPAY ==
[~2019-09-15] VITALS: Ht 165.1 cm; Wt 91.5 kg
[2019-09-15 16:35] VITALS: BP 135/82
[2019-09-15] MEDS ORDERED: IBUPROFEN 200 MG TABLET. PO ONE (17:00)
--- NOTE | 2019-09-15 17:03 | PHYS DOC ---
Past Medical History Past Medical History: Kidney Stone, UTI Past Surgical History: Tubal ligation, Other Additional Past Surgical Histo: URETERAL STENT Smoking Status: Never Smoker Alcohol Use: None Drug Use: None Adult General Chief Complaint Chief Complaint: SORE THROAT HPI HPI Patient is a 33 year old female who presents with nasal congestion, sore throat, body aches, fever 2 days. Patient's son was recently diagnosed with influenza A. Patient states last took ibuprofen was 10:00 this morning. Rates the pain 9 out of 10. Review of Systems Review of Systems Constitutional: fever or chills [] HENT: nasal congestion or sore throat [] Respiratory: cough or denies shortness of breath [] Musculoskeletal: Bodyaches. Denies back pain or joint pain [] All other systems were reviewed and found to be within normal limits, except as documented in this note. Current Medications Current Medications Current Medications Medications (Trade) Dose Ordered Sig/Emerald Start Time Stop Time Status Last Admin Dose Admin Ibuprofen (Motrin) 600 mg 1X ONCE 09/15/19 17:00 09/15/19 17:02 DC 09/15/19 17:00 600 MG Allergies Allergies Allergies Coded Allergies Type Severity Reaction Last Updated Verified Sulfa (Sulfonamide Antibiotics) Allergy Intermediate 07/30/19 Yes Physical Exam Physical Exam Constitutional: Well developed, well nourished, no acute distress, non-toxic appearance. [] HENT: Normocephalic, atraumatic, bilateral external ears normal, oropharynx moist, no oral exudates, nose normal. [] Eyes: PERRLA, EOMI, conjunctiva normal, no discharge. [] Neck: Normal range of motion, no tenderness, supple, no stridor. [] Cardiovascular:Heart rate regular rhythm, no murmur [] Lungs & Thorax: Bilateral breath sounds clear to auscultation [] Abdomen: Bowel sounds normal, soft, no tenderness, no masses, no pulsatile masses. [] Skin: Warm, dry, no erythema, no rash. [] Back: No tenderness, no CVA tenderness. [] Extremities: No tenderness, no cyanosis, no clubbing, ROM intact, no edema. [] Neurologic: Alert and oriented X 3, normal motor function, normal sensory function, no focal deficits noted. [] Psychologic: Affect normal, judgement normal, mood normal. Normal Physical Exam [] Current Patient Data Vital Signs Vital Signs Date Time Temp Pulse Resp B/P (MAP) Pulse Ox O2 Delivery O2 Flow Rate FiO2 09/15/19 16:35 98.5 110 14 135/82 (99) 99 Room Air 98.5 Lab Values Laboratory Tests Test 09/15/19 17:00 Influenza Type A Antigen Positive (NEGATIVE) Influenza Type B Antigen Negative (NEGATIVE) EKG EKG [] Radiology/Procedures Radiology/Procedures [] Course & Med Decision Making Course & Med Decision Making Pertinent Labs and Imaging studies reviewed. (See chart for details) Alert and oriented. Speaks in full clear sentences. Skin pink warm and dry. Lungs are clear to auscultation in all lobes. Throat is pink without swelling or exudates. Bilateral Tympanic White. No trismus. Uvula midline. Patient denies nausea, vomiting, abdominal pain, dizziness, headache, vision changes, numbness or tingling, chest pain, shortness of air, diarrhea. Influenza A positive. [] Dragon Disclaimer Dragon Disclaimer This electronic medical record was generated, in whole or in part, using a voice recognition dictation system. Departure Departure Impression: Primary Impression: Influenza A Disposition: HOME, SELF-CARE Condition: STABLE Referrals: NO PCP (PCP) Patient Instructions: Influenza, Adult Additional Instructions: Take Ibuprofen every 6-8 hours for your pain and fever. Drink plenty of fluids. Follow up with primary care provider. Take medications with food. Scripts Ondansetron (ONDANSETRON ODT) 4 Mg Tab.rapdis 1 TAB PO PRN Q6-8HRS, #16 TAB Prov: EMMANUEL MOORE UPPER INSPECTOR 09/15/19 Oseltamivir Phosphate (TAMIFLU) 75 Mg Capsule 1 CAP PO BID, #10 CAP Prov: EMMANUEL MOORE UPPER INSPECTOR 09/15/19 EMMANUEL MOORE UPPER INSPECTOR Sep 15, 2019 17:03
[2019-09-15 17:33] LABS: INFLUENZA A PATIENT POSITIVE (NEGATIVE); INFLUENZA B PATIENT NEGATIVE (NEGATIVE)
[2019-09-15] MEDS ORDERED: ONDA4TAB12 PO (17:43)
[2019-09-15] MEDS ORDERED: OSEL75CA PO (17:43)
== END 2019-09-15 17:45 | disposition home or self-care (01) ==
LOC: ER 15:56
DX: J10.1 Influenza due to other identified influenza virus with other respiratory manifestations (principal); R09.81 Nasal congestion; Z87.442 Personal history of urinary calculi; Z98.51 Tubal ligation status; Z98.890 Other specified postprocedural states; Z88.2 Allergy status to sulfonamides
CPT/HCPCS: 87804; 99283

== ENCOUNTER 2020-03-09 13:18 | Emergency (ER) | payer SELFPAY ==
[~2020-03-09] VITALS: Ht 165.1 cm; Wt 81.8 kg
[~2020-03-09 13:18] MED LIST changes: +ONDA4TAB12 PO; +OSEL75CA PO
[2020-03-09 14:34] LABS: BASO # 0.1 x10^3/uL (0.0-0.2); BASO % 1 % (0-3); EOS # 0.1 x10^3/uL (0.0-0.7); EOS % 2 % (0-3); HEMATOCRIT 36.9 % (36.0-47.0); HEMOGLOBIN 12.5 g/dL (12.0-15.5); LYMPH # 2.1 x10^3/uL (1.0-4.8); LYMPH % 30 % (24-48); MEAN CORPUSCULAR HEMOGLOBIN 28 pg (25-35); MEAN CORPUSCULAR HGB CONC 34 g/dL (31-37); MEAN CORPUSCULAR VOLUME 81 fL (79-100); MONO # 0.6 x10^3/uL (0.0-1.1); MONO % 8 % (0-9); NEUT # 4.1 x10^3/uL (1.8-7.7); NEUT % 59 % (31-73); PLATELET COUNT 175 x10^3/uL (140-400); RED BLOOD COUNT 4.55 x10^6/uL (3.50-5.40)
[2020-03-09 14:36] LABS: BILIRUBIN,URINE NEGATIVE (NEG); CLARITY,URINE CLEAR; COLOR,URINE YELLOW; NITRITE,URINE NEGATIVE (NEG); PH,URINE 7.5 (<5.0-8.0); PROTEIN,URINE NEGATIVE (NEG-TRACE)
[2020-03-09 14:41] LABS: CALCIUM 9.1 mg/dL (8.5-10.1); CREATININE 0.9 mg/dL (0.6-1.0); GFR 72.6; POTASSIUM 3.9 mmol/L (3.5-5.1)
[2020-03-09] MEDS ORDERED: fentaNYL PF VIAL 100 MCG/2 ML VIAL IV ONE (14:45)
[2020-03-09] MEDS ORDERED: ONDANSETRON PF 4 MG/2 ML VIAL. IV ONE (14:45)
[2020-03-09] MEDS ORDERED: IV NORMAL SALINE 1000ML BAG 1,000 ML IV ONE (14:45)
[2020-03-09 14:47] LABS: ALBUMIN 3.8 g/dL (3.4-5.0); TOTAL BILIRUBIN 0.5 mg/dL (0.2-1.0); TOTAL PROTEIN 7.7 g/dL (6.4-8.2)
[2020-03-09 14:58] LABS: SQUAMOUS EPITHELIAL CELL,UR MOD /LPF
[2020-03-09 14:59] LABS: BACTERIA,URINE MODERATE /HPF (0-FEW); RBC,URINE 0 /HPF (0-2); WBC,URINE 20-40 /HPF (0-4)
[2020-03-09 15:02] VITALS: BP 102/56
[2020-03-09 15:03] LABS: U PREG PATIENT NEGATIVE (NEG)
[2020-03-09] MEDS ORDERED: IOHEXOL 300 MG/ML 100ML VIAL. IV ONE (15:15)
[2020-03-09] MEDS ORDERED: cefTRIAXone IV Push 1 GM VIAL. IVP ONE (15:15)
[2020-03-09] MEDS ORDERED: CONTRAST GIVEN. MC PRN (15:30)
--- NOTE | 2020-03-09 15:53 | RAD ---
CT ABD PELV W/ IV CONTRST ONLY History: Reason: RLQ abd pain / Spl. Instructions: IV OMNI 300 75 MLS / History: Technique: After the administration of intravenous contrast, CT imaging was performed of the abdomen and pelvis. Multiplanar images are reviewed. Exposure: One or more of the following individualized dose reduction techniques were utilized for this examination: 1. Automated exposure control 2. Adjustment of the mA and/or kV according to patient size 3. Use of iterative reconstruction technique. Comparison: July 30, 2019 Findings: Lower chest: No consolidation or pleural effusion. Abdomen and pelvis: Hepatic focal fatty infiltration along the falciform ligament. The spleen, adrenal glands, pancreas and gallbladder are unremarkable. No biliary ductal dilatation. Patent portal vein. Right renal cortical irregularity with peripheral calcification, unchanged. No hydronephrosis. No ureteral or urinary bladder calculus. Normal appendix. No evidence of bowel obstruction. No pathologic lymphadenopathy. Small pelvic ascites. Left adnexal cystic lesion measures 4.4 x 3.8 cm. Involuting follicle within the left ovary. Bones: No pathologic osseous lesions. Impression: 1. Left adnexal cystic lesion, may represent exophytic ovarian cyst or peritoneal inclusion cyst. Similar compared to prior. Ultrasound can further evaluate. 2. Small pelvic free fluid. Electronically signed by: Diony Denton DO (03/09/2020 3:51 PM) [facility]
[2020-03-09] MEDS ORDERED: CEPH-264 PO (16:35)
[2020-03-09] MEDS ORDERED: ONDA-84 PO (16:35)
--- NOTE | 2020-03-09 16:35 | PHYS DOC ---
Past Medical History Past Medical History: Kidney Stone, UTI Past Surgical History: Tubal ligation, Other Additional Past Surgical Histo: URETERAL STENT Smoking Status: Never Smoker Alcohol Use: None Drug Use: None General Adult EDM: Chief Complaint: ABDOMINAL PAIN HPI: HPI: Patient is a 34 year old female who presents to the emergency department with complaints of right lower quadrant and right flank pain for the last 3 days. She reports foul-smelling urine, headache, and increased urinary frequency. She denies any blood in her urine, difficulty urinating, or back pain. She reports that she did have a recent mild cough but denies any production of the cough. She denies any known exposure to mono tested positive for COVID-19. She also denies any shortness of breath, nausea, vomiting, fever, chills, sore throat, or decrease sense of taste or smell. She denies any irregular vaginal discharge, or vaginal bleeding. She currently rates her pain a 8 out of 10 on the pain scale, she denies any alleviating or exacerbating factors. Review of Systems: Review of Systems: Constitutional: Denies fever or chills. [] HENT: Denies nasal congestion or sore throat. [] Respiratory: Denies wheezing or shortness of breath; see HPI. [] Cardiovascular: Denies chest pain or edema. [] GI: Denies nausea, vomiting, bloody stools or diarrhea; see HPI. [] : See HPI Musculoskeletal: Denies back pain or joint pain. [] Integument: Denies rash. [] Neurologic: Denies headache Lymphatic: Denies swollen glands. [] Psychiatric: Denies depression or anxiety. [] Heart Score: Risk Factors: Risk Factors: DM, Current or recent (<one month) smoker, HTN, HLP, family history of CAD, obesity. Risk Scores: Score 0 - 3: 2.5% MACE over next 6 weeks - Discharge Home Score 4 - 6: 20.3% MACE over next 6 weeks - Admit for Clinical Observation Score 7 - 10: 72.7% MACE over next 6 weeks - Early Invasive Strategies Current Medications: Current Medications Medications (Trade) Dose Ordered Sig/Emerald Start Time Stop Time Status Last Admin Dose Admin Ceftriaxone Sodium (Rocephin) 1 gm 1X ONCE 03/09/20 15:15 03/09/20 15:16 DC 03/09/20 15:35 1 GM Fentanyl Citrate (Fentanyl 2ml Vial) 50 mcg 1X ONCE 03/09/20 14:45 03/09/20 14:46 DC 03/09/20 15:36 50 MCG Info (CONTRAST GIVEN -- Rx MONITORING) 1 each PRN DAILY PRN 03/09/20 15:30 03/11/20 15:29 Iohexol (Omnipaque 300 Mg/ml) 75 ml 1X ONCE 03/09/20 15:15 03/09/20 15:17 DC Ondansetron HCl (Zofran) 4 mg 1X ONCE 03/09/20 14:45 03/09/20 14:46 DC 03/09/20 15:35 4 MG Sodium Chloride 1,000 ml @ 1,000 mls/hr 1X ONCE 03/09/20 14:45 03/09/20 15:44 DC 03/09/20 15:36 1,000 MLS/HR Allergies: Allergies: Allergies Coded Allergies Type Severity Reaction Last Updated Verified Sulfa (Sulfonamide Antibiotics) Allergy Intermediate 07/30/19 Yes Physical Exam: PE: Constitutional: Well developed, well nourished, no acute distress, non-toxic appearance. [] HENT: Normocephalic, atraumatic, bilateral external ears normal, nose normal. [] Eyes: PERRLA, EOMI, conjunctiva normal, no discharge. [] Neck: Normal range of motion, no stridor. [] Cardiovascular:Heart rate regular rhythm Lungs & Thorax: Respirations even and unlabored, no retractions, no respiratory distress Abdomen: soft, right lower quadrant tenderness to palpation, positive McBurney's point tenderness, negative Rovsing's, positive psoas sign, no palpable mass Back: Right CVA tenderness Skin: Warm, dry, no erythema, no rash. [] Extremities: No cyanosis, ROM intact, no edema. [] Neurologic: Alert and oriented X 3, no focal deficits noted. [] Psychologic: Affect normal, judgement normal, mood normal. [] Current Patient Data: Labs: Laboratory Tests Test 03/09/20 14:24 White Blood Count 7.0 x10^3/uL (4.0-11.0) Red Blood Count 4.55 x10^6/uL (3.50-5.40) Hemoglobin 12.5 g/dL (12.0-15.5) Hematocrit 36.9 % (36.0-47.0) Mean Corpuscular Volume 81 fL (79-100) Mean Corpuscular Hemoglobin 28 pg (25-35) Mean Corpuscular Hemoglobin Concent 34 g/dL (31-37) Red Cell Distribution Width 13.0 % (11.5-14.5) Platelet Count 175 x10^3/uL (140-400) Neutrophils (%) (Auto) 59 % (31-73) Lymphocytes (%) (Auto) 30 % (24-48) Monocytes (%) (Auto) 8 % (0-9) Eosinophils (%) (Auto) 2 % (0-3) Basophils (%) (Auto) 1 % (0-3) Neutrophils # (Auto) 4.1 x10^3/uL (1.8-7.7) Lymphocytes # (Auto) 2.1 x10^3/uL (1.0-4.8) Monocytes # (Auto) 0.6 x10^3/uL (0.0-1.1) Eosinophils # (Auto) 0.1 x10^3/uL (0.0-0.7) Basophils # (Auto) 0.1 x10^3/uL (0.0-0.2) Urine Collection Type Unknown Urine Color Yellow Urine Clarity Clear Urine pH 7.5 (<5.0-8.0) Urine Specific [place] 1.020 (1.000-1.030) Urine Protein Negative mg/dL (NEG-TRACE) Urine Glucose (UA) Negative mg/dL (NEG) Urine Ketones (Stick) Negative mg/dL (NEG) Urine Blood Negative (NEG) Urine Nitrite Negative (NEG) Urine Bilirubin Negative (NEG) Urine Urobilinogen Dipstick 1.0 mg/dL (0.2 mg/dL) Urine Leukocyte Esterase Large (NEG) Urine RBC 0 /HPF (0-2) Urine WBC 20-40 /HPF (0-4) Urine Squamous Epithelial Cells Mod /LPF Urine Bacteria Moderate /HPF (0-FEW) Urine Mucus Mod /LPF Urine Test Negative (NEG) Sodium Level 141 mmol/L (136-145) Potassium Level 3.9 mmol/L (3.5-5.1) Chloride Level 105 mmol/L (98-107) Carbon Dioxide Level 28 mmol/L (21-32) Anion Gap 8 (6-14) Blood Urea Nitrogen 8 mg/dL (7-20) Creatinine 0.9 mg/dL (0.6-1.0) Estimated GFR (Cockcroft-Gault) 72.6 BUN/Creatinine Ratio 9 (6-20) Glucose Level 88 mg/dL (70-99) Calcium Level 9.1 mg/dL (8.5-10.1) Magnesium Level 2.0 mg/dL (1.8-2.4) Total Bilirubin 0.5 mg/dL (0.2-1.0) Aspartate Amino Transferase (AST) 21 U/L (15-37) Alanine Aminotransferase (ALT) 44 U/L (14-59) Alkaline Phosphatase 62 U/L (46-116) Total Protein 7.7 g/dL (6.4-8.2) Albumin 3.8 g/dL (3.4-5.0) Albumin/Globulin Ratio 1.0 (1.0-1.7) Lipase 72 U/L (73-393) L Laboratory Tests 03/09/20 14:24 Laboratory Tests 03/09/20 14:24 Vital Signs: Vital Signs Date Time Temp Pulse Resp B/P (MAP) Pulse Ox O2 Delivery O2 Flow Rate FiO2 03/09/20 15:36 16 98 03/09/20 14:02 98.6 57 110/60 (77) Room Air 98.6 EKG: EKG: [] Radiology/Procedures: Radiology/Procedures: PROCEDURE: CT ABD PELV W/ IV CONTRST ONLY CT ABD PELV W/ IV CONTRST ONLY History: Reason: RLQ abd pain / Spl. Instructions: IV OMNI 300 75 MLS / History: Technique: After the administration of intravenous contrast, CT imaging was performed of the abdomen and pelvis. Multiplanar images are reviewed. Exposure: One or more of the following individualized dose reduction techniques were utilized for this examination: 1. Automated exposure control 2. Adjustment of the mA and/or kV according to patient size 3. Use of iterative reconstruction technique. Comparison: July 30, 2019 Findings: Lower chest: No consolidation or pleural effusion. Abdomen and pelvis: Hepatic focal fatty infiltration along the falciform ligament. The spleen, adrenal glands, pancreas and gallbladder are unremarkable. No biliary ductal dilatation. Patent portal vein. Right renal cortical irregularity with peripheral calcification, unchanged. No hydronephrosis. No ureteral or urinary bladder calculus. Normal appendix. No evidence of bowel obstruction. No pathologic lymphadenopathy. Small pelvic ascites. Left adnexal cystic lesion measures 4.4 x 3.8 cm. Involuting follicle within the left ovary. Bones: No pathologic osseous lesions. Impression: 1. Left adnexal cystic lesion, may represent exophytic ovarian cyst or peritoneal inclusion cyst. Similar compared to prior. Ultrasound can further evaluate. 2. Small pelvic free fluid. [] Course & Med Decision Making: Course & Med Decision Making Pertinent Labs and Imaging studies reviewed. (See chart for details) 34-year-old female presents emergency department complaints of right flank pain UA is current concerning for 20-40 white blood cells, no red blood cells, many bacteria. The patient was given 1 g of IV Rocephin in the emergency department. CBC was unremarkable; CMP was unremarkable; Normal-appearing appendix on CT exam, no kidney stone present or hydronephrosis. There was a finding of a left adnexal cystic lesion and a small amount of pelvic free fluid with the CT scan the patient was advised of these incidental findings. A prescription was written for Keflex 500 mg p.o. 4 times daily for 7 days. Patient was encouraged to increase clear fluids, avoid bladder irritants, and follow-up with her primary care doctor in 1 to 2 days. I encouraged the patient to return to the emergency room if symptoms worsen [] [place] Disclaimer: Ar Disclaimer: This electronic medical record was generated, in whole or in part, using a voice recognition dictation system. Departure Departure Impression: Primary Impression: UTI (urinary tract infection) Qualified Codes: N30.00 - Acute cystitis without hematuria Disposition: HOME, SELF-CARE Condition: STABLE Referrals: NO PCP (PCP) Patient Instructions: Urinary Tract Infection, [id number] Additional Instructions: Fill prescription(s) and use as directed. Avoid bladder irritants such as caffeine, carbonation, and spicy foods. Increase clear fluids. Follow up with your primary care doctor if symptoms persist, return to the ER if symptoms worsen. Scripts Ondansetron Hcl (ONDANSETRON HCL) 4 Mg Tablet 1 TAB PO PRN Q6HRS PRN for NAUSEA/VOMITING for 3 Days, #10 TAB 0 Refills Prov: NADIR CORTEZ CERTIFIED HYPERBARIC TECHNOLOGIST 03/09/20 Cephalexin (KEFLEX) 500 Mg Capsule 500 MG PO QID for 7 Days, #28 CAP 0 Refills Prov: NADIR CORTEZ CERTIFIED HYPERBARIC TECHNOLOGIST 03/09/20 Justicifation of Admission Dx: Justifications for Admission: Justification of Admission Dx: N/A NADIR CORTEZ CERTIFIED HYPERBARIC TECHNOLOGIST Mar 09, 2020 16:35
== END 2020-03-09 16:47 | disposition home or self-care (01) ==
LOC: ER 13:18
DX: N30.00 Acute cystitis without hematuria (principal); Z98.51 Tubal ligation status; Z87.442 Personal history of urinary calculi; Z96.0 Presence of urogenital implants; Z88.2 Allergy status to sulfonamides
CPT/HCPCS: 36415; 74177; 80053; 81001; 81025; 83690; 83735; 85025; 87086; 96361; 96374; 96375; 99285; J0696; J2405; J3010; J7030

== ENCOUNTER 2020-12-28 18:46 | Emergency (ER) | payer MEDICAID ==
[~2020-12-28] VITALS: Ht 165.1 cm; Wt 97.0 kg
[~2020-12-28 18:46] MED LIST changes: +ONDA-84 PO
--- NOTE | 2020-12-28 18:55 | PHYS DOC ---
Past Medical History Past Medical History: Kidney Stone, UTI Past Surgical History: Tubal ligation, Other Additional Past Surgical Histo: URETERAL STENT Smoking Status: Never Smoker Alcohol Use: None Drug Use: None General Adult EDM: Chief Complaint: HEADACHE HPI: HPI: Patient is a 34-year-old female presenting via EMS for migraine headache. Reports onset was 12 hours prior. Has history of migraines, states this feels similar to past episodes and over left side of head. States she feels dehydrated, has been outside in the weather more than usual. Cites migraine headache, visual disturbances, worsened pain with loud noises and reports being thirsty. She has not taken anything for this today. Nothing known makes better. Timing of symptoms has been constant since onset and thus, ongoing symptoms prompted her to call EMS for transport to our facility. Patient has no significant past medical issues besides migraines, is not on any daily medications, denies tobacco, alcohol and/or illicit drug abuse Review of Systems: Review of Systems: Fourteen body systems of review of systems have been reviewed. See HPI for pertinent positives and negative responses, other aaron all other systems are negative, non-pertinent or non-contributory Heart Score: C/O Chest Pain: No HEART Score for Chest Pain: HEART Score for Chest Pain Response (Comments) Value Age < 45 0 Risk Factors No Risk Factors 0 Total 0 Risk Factors: Risk Factors: DM, Current or recent (<one month) smoker, HTN, HLP, family history of CAD, obesity. Risk Scores: Score 0 - 3: 2.5% MACE over next 6 weeks - Discharge Home Score 4 - 6: 20.3% MACE over next 6 weeks - Admit for Clinical Observation Score 7 - 10: 72.7% MACE over next 6 weeks - Early Invasive Strategies Allergies: Allergies: Allergies Coded Allergies Type Severity Reaction Last Updated Verified Sulfa (Sulfonamide Antibiotics) Allergy Intermediate 07/30/19 Yes Physical Exam: PE: Constitutional: Well developed, well nourished, in moderate distress due to pain although non-toxic in appearance. HENT: Normocephalic, atraumatic, bilateral external ears normal, oropharynx moist, no oral exudates, nose normal. Eyes: PERRLA, EOMI, conjunctiva normal, no discharge. Neck: Normal range of motion, no tenderness, supple, no stridor. Cardiovascular: Heart rate regular, sinus rhythm, no murmurs rubs or gallops Lungs & Thorax: Bilateral breath sounds clear to auscultation Abdomen: Bowel sounds normal, soft, no tenderness, no masses, no pulsatile masses. Nonsurgical abdomen, no peritoneal signs Skin: Warm, dry, no erythema, no rash. Back: No tenderness, no CVA tenderness. Extremities: No tenderness, no cyanosis, no clubbing, ROM intact, no edema. Neurologic: Alert and oriented X 3, cranial nerves II through XII intact, normal motor & sensory function, no focal deficits noted. Psychologic: Tearful affect, anxious mood Current Patient Data: Labs: Laboratory Tests Test 12/28/20 18:48 White Blood Count 10.2 x10^3/uL Red Blood Count 4.64 x10^6/uL Hemoglobin 12.4 g/dL Hematocrit 36.7 % Mean Corpuscular Volume 79 fL Mean Corpuscular Hemoglobin 27 pg Mean Corpuscular Hemoglobin Concent 34 g/dL Red Cell Distribution Width 14.0 % Platelet Count 212 x10^3/uL Neutrophils (%) (Auto) 69 % Lymphocytes (%) (Auto) 21 % Monocytes (%) (Auto) 8 % Eosinophils (%) (Auto) 1 % Basophils (%) (Auto) 1 % Neutrophils # (Auto) 7.0 x10^3/uL Lymphocytes # (Auto) 2.2 x10^3/uL Monocytes # (Auto) 0.8 x10^3/uL Eosinophils # (Auto) 0.1 x10^3/uL Basophils # (Auto) 0.1 x10^3/uL Sodium Level 142 mmol/L Potassium Level 4.1 mmol/L Chloride Level 106 mmol/L Carbon Dioxide Level 26 mmol/L Anion Gap 10 Blood Urea Nitrogen 8 mg/dL Creatinine 0.8 mg/dL Estimated GFR (Cockcroft-Gault) 83.1 Glucose Level 100 mg/dL Calcium Level 9.2 mg/dL Current Medications Medications (Trade) Dose Ordered Sig/Emerald Route PRN Reason Start Time Stop Time Status Last Admin Dose Admin Ketorolac Tromethamine (Toradol 15mg Vial) 15 mg 1X ONCE IVP 12/28/20 19:00 12/28/20 19:15 DC 12/28/20 19:13 Prochlorperazine Edisylate (Compazine) 10 mg 1X ONCE IV 12/28/20 19:00 12/28/20 19:01 DC 12/28/20 19:13 Diphenhydramine HCl (Benadryl) 25 mg 1X ONCE IVP 12/28/20 19:00 12/28/20 19:01 DC 12/28/20 19:13 Sodium Chloride 1,000 ml @ 1,000 mls/hr 1X ONCE IV 12/28/20 19:00 12/28/20 19:59 12/28/20 19:13 Vital Signs: Vital Signs Date Time Temp Pulse Resp B/P (MAP) Pulse Ox O2 Delivery O2 Flow Rate FiO2 12/28/20 18:50 97.9 83 18 132/81 (98) 100 Room Air 97.9 Vital Signs Date Time Temp Pulse Resp B/P (MAP) Pulse Ox O2 Delivery O2 Flow Rate FiO2 12/28/20 18:50 97.9 83 18 132/81 (98) 100 Room Air 97.9 EKG: EKG: [] Radiology/Procedures: Radiology/Procedures: [] Course & Med Decision Making: Course & Med Decision Making Discussed with the patient all findings and diagnostic testing. I discussed most likely diagnosis of migraine headache. I disclose little likelihood of other more concerning diagnoses such as stroke versus other more central process requiring further diagnostic work-up and/or need for hospitalization. Patient symptoms resolved with ER intervention. As such, joint decision was made to discharge home for continued supportive care, deferring further work-up given asymptomatic state. I stressed need for close outpatient follow-up to review today's ER visit. She does not have a primary care physician, I discussed that we will give her resources and urged her to establish care for continuity of care and potential need for outpatient neurologist follow-up. Strict return precautions were also discussed at length with good understanding by patient. Patient voiced understanding and agreement with the plan. Patient knows to come back for repeat evaluation if concerning signs or symptoms present prior to outpatient follow-up. Hemodynamically stable, ambulatory and well-appearing at time of disposition. Dragon Disclaimer: Dragon Disclaimer: This electronic medical record was generated, in whole or in part, using a voice recognition dictation system. Departure Departure Impression: Primary Impression: Migraine headache Disposition: HOME / SELF CARE / HOMELESS Condition: IMPROVED Referrals: NO PCP (PCP) Patient Instructions: Migraine Headache Additional Instructions: You were seen for a migraine headache. Your symptoms improved with an NSAID, Tylenol, antimigraine medication, anti-nausea medication and gentle fluid hydration. We discussed utility of further diagnostic work-up in ER setting such as CT head imaging versus other but given improvement in symptoms, joint decision to defer at this time. You do not have a primary care physician and as such, it is pertinent that you use attached resources to contact one and establish care for continuity of care and potential need for outpatient neurology follow-up. You should return to the ED if you develop worsening pain, vision change, numbness, tingling, weakness, vomiting, fever, neck pain, or any other new or concerning symptoms. MANNIE DING DO Dec 28, 2020 18:55
[2020-12-28] MEDS ORDERED: PROCHLORPERAZINE 10 MG/2 ML VIAL. IV ONE (19:00)
[2020-12-28] MEDS ORDERED: KETOROLAC 15 MG/ML VIAL. IVP ONE (19:00)
[2020-12-28] MEDS ORDERED: IV NORMAL SALINE 1000ML BAG 1,000 ML IV ONE (19:00)
[2020-12-28] MEDS ORDERED: diphenhydrAMINE 50 MG/ML VIAL IVP ONE (19:00)
[2020-12-28 19:01] LABS: BASO # 0.1 x10^3/uL (0.0-0.2); BASO % 1 % (0-3); EOS # 0.1 x10^3/uL (0.0-0.7); EOS % 1 % (0-3); HEMATOCRIT 36.7 % (36.0-47.0); HEMOGLOBIN 12.4 g/dL (12.0-15.5); LYMPH # 2.2 x10^3/uL (1.0-4.8); LYMPH % 21 % (24-48); MEAN CORPUSCULAR HEMOGLOBIN 27 pg (25-35); MEAN CORPUSCULAR HGB CONC 34 g/dL (31-37); MEAN CORPUSCULAR VOLUME 79 fL (79-100); MONO # 0.8 x10^3/uL (0.0-1.1); MONO % 8 % (0-9); NEUT % 69 % (31-73); PLATELET COUNT 212 x10^3/uL (140-400); RED BLOOD COUNT 4.64 x10^6/uL (3.50-5.40); WHITE BLOOD COUNT 10.2 x10^3/uL (4.0-11.0)
[2020-12-28 19:18] LABS: CALCIUM 9.2 mg/dL (8.5-10.1); CREATININE 0.8 mg/dL (0.6-1.0); GFR 83.1; POTASSIUM 4.1 mmol/L (3.5-5.1)
[2020-12-28] MEDS ORDERED: ACETAMINOPHEN 500 MG TABLET PO ONE (20:00)
[2020-12-28 20:41] VITALS: BP 134/85
== END 2020-12-28 20:44 | disposition home or self-care (01) ==
LOC: ER 18:46
DX: G43.909 Migraine, unspecified, not intractable, without status migrainosus (principal); Z88.2 Allergy status to sulfonamides
CPT/HCPCS: 36415; 80048; 85025; 96361; 96374; 96375; 99284; J0780; J1200; J1885; J7030

== ENCOUNTER 2021-04-11 19:13 | Emergency (ER) | payer MEDICAID ==
[~2021-04-11] VITALS: Ht 165.1 cm; Wt 100.0 kg
--- NOTE | 2021-04-11 19:21 | PHYS DOC ---
Past Medical History Past Medical History: Kidney Stone, Migraines, UTI Past Surgical History: Tubal ligation, Other Additional Past Surgical Histo: URETERAL STENT Smoking Status: Never Smoker Alcohol Use: None Drug Use: None General Adult EDM: Chief Complaint: FLANK PAIN HPI: HPI: Patient is a 35-year-old female presenting via EMS for right flank pain. Onset was 3 days ago without any known inciting event, trauma, ingestion, exposure or known mechanism of injury. Nothing known makes better or worse. Pain is described as sharp and radiates from her right posterior flank near her rib cage down into her suprapubic area. She has history of kidney stones in the past, reportedly had a 13 mm stone in 2018 that required surgical extraction. Ongoing 04/24 severity pain prompted her to call EMS for transport to our facility for arrival as she fears she has a recurrence of stone. She said she had a CT abdomen pelvis performed at that time in 2018 which found significant kidney stones within the kidney itself but only x1 outside the kidney that was problematic Review of Systems: Review of Systems: Fourteen body systems of review of systems have been reviewed. See HPI for pertinent positives and negative responses, other aaron all other systems are negative, non-pertinent or non-contributory Heart Score: C/O Chest Pain: No Risk Factors: Risk Factors: DM, Current or recent (<one month) smoker, HTN, HLP, family history of CAD, obesity. Risk Scores: Score 0 - 3: 2.5% MACE over next 6 weeks - Discharge Home Score 4 - 6: 20.3% MACE over next 6 weeks - Admit for Clinical Observation Score 7 - 10: 72.7% MACE over next 6 weeks - Early Invasive Strategies Allergies: Allergies: Allergies Coded Allergies Type Severity Reaction Last Updated Verified Sulfa (Sulfonamide Antibiotics) Allergy Intermediate 07/30/19 Yes Physical Exam: PE: Constitutional: Well developed, well nourished, no acute distress, non-toxic appearance. [] HENT: Normocephalic, atraumatic, bilateral external ears normal, oropharynx moist, no oral exudates, nose normal. [] Eyes: PERRLA, EOMI, conjunctiva normal, no discharge. [] Neck: Normal range of motion, no tenderness, supple, no stridor. [] Cardiovascular:Heart rate regular rhythm, no murmur [] Lungs & Thorax: Bilateral breath sounds clear to auscultation [] Abdomen: Bowel sounds normal, soft, no tenderness, no masses, no pulsatile masses. [] Skin: Warm, dry, no erythema, no rash. [] Back: No tenderness, no CVA tenderness. [] Extremities: No tenderness, no cyanosis, no clubbing, ROM intact, no edema. [] Neurologic: Alert and oriented X 3, normal motor function, normal sensory function, no focal deficits noted. [] Psychologic: Affect normal, judgement normal, mood normal. [] Current Patient Data: Vital Signs: Vital Signs Date Time Temp Pulse Resp B/P (MAP) Pulse Ox O2 Delivery O2 Flow Rate FiO2 04/11/21 19:16 98.0 99 18 122/65 (84) 96 Room Air 98.0 Vital Signs Date Time Temp Pulse Resp B/P (MAP) Pulse Ox O2 Delivery O2 Flow Rate FiO2 04/11/21 19:16 98.0 99 18 122/65 (84) 96 Room Air 98.0 EKG: EKG: [] Radiology/Procedures: Radiology/Procedures: Exam: CT of abdomen and pelvis without contrast INDICATION: Right flank pain TECHNIQUE: Sequential axial images through the abdomen and pelvis obtained without IV contrast. Sagittal and coronal reformatted images were reconstructed from the axial data and reviewed. Exposure: One or more of the following in the visualized dose reduction techniques were utilized for this examination: 1. Automated exposure control 2. Adjustment of the MA and/or KV according to patient size 3. Use of iterative of reconstructive technique Comparisons: None FINDINGS: Heart size is normal. No pericardial effusion. Strandy opacities at dependent portion lungs likely representing atelectasis No pleural effusion. Evaluation of the solid organs limited secondary to noncontrast technique. Diffuse hepatic steatosis. Spleen, pancreas, and adrenals are unremarkable. Gallbladder is decompressed. No perinephric inflammation or hydronephrosis. Nonobstructing right renal calculus is noted. No ureteral calculi are identified. Bladder is decompressed not well evaluated. Uterus is not enlarged. Cystic lesion at the left adnexa which measures up to 4.6 cm in long axis. Large and small bowel are unremarkable. Appendix is normal. No free intra- abdominal air or fluid. No obstruction. Abdominal aorta has a normal course and caliber. No enlarged abdominal lymph nodes are identified. No suspicious osseous lesions or acute fractures. IMPRESSION: 1. No acute process identified within the abdomen or pelvis. 2. Diffuse hepatic steatosis. Electronically signed by: Milo Concepcion MD (04/11/2021 8:51 PM) [facility] Course & Med Decision Making: Course & Med Decision Making ABCs unremarkable HPI, physical exam and comprehensive ER work-up nonconcerning for any emergent or surgical issues I disclosed all findings with patient. No further diagnostic work-up or intervention required Joint decision made to discharge home with short-term narcotic pain medication prescription and follow-up with previously established PCP and neurologist Strict return precautions were discussed with good understanding by patient, all questions and concerns addressed prior to ER departure Dragon Disclaimer: Dragon Disclaimer: This electronic medical record was generated, in whole or in part, using a voice recognition dictation system. Departure Departure Impression: Primary Impression: Flank pain Disposition: HOME / SELF CARE / HOMELESS Condition: STABLE Referrals: NO PCP (PCP) Additional Instructions: You have been evaluated in the Emergency Department today for right-sided abdominal pain. Your evaluation was not suggestive of any emergent condition requiring medical intervention at this time. However, some abdominal problems make take more time to appear. Therefore, it is important for you to watch for any new symptoms or worsening of your current condition. As discussed, since he did not give a urine sample I cannot fully exclude urinary tract infection As such, it is imperative that you use attached resources to follow-up with primary care provider and prior urologist for further evaluation and treatment as indicated Return to the Emergency Department if you experience worsening pain, persistent fevers greater than 100.4, recurrent vomiting, blood in vomit, blood in stool, dark tarry stool, chest pain, difficulty breathing, or any other concerning symptoms. Scripts Hydrocodone Bit/Acetaminophen (HYDROCODONE-APAP 5-325 ) 1 Tab Tablet 1 TAB PO PRN Q6HRS PRN for PAIN, #14 TAB 0 Refills Prov: MANNIE DING DO 04/11/21 MANNIE DING DO Apr 11, 2021 19:21
[2021-04-11] MEDS ORDERED: KETOROLAC 30 MG/ML VIAL. IVP ONE (19:30)
[2021-04-11 19:50] LABS: BASO # 0.1 x10^3/uL (0.0-0.2); BASO % 1 % (0-3); EOS # 0.2 x10^3/uL (0.0-0.7); EOS % 2 % (0-3); HEMATOCRIT 34.4 % (36.0-47.0); HEMOGLOBIN 11.5 g/dL (12.0-15.5); LYMPH % 30 % (24-48); MEAN CORPUSCULAR HEMOGLOBIN 27 pg (25-35); MEAN CORPUSCULAR HGB CONC 33 g/dL (31-37); MEAN CORPUSCULAR VOLUME 80 fL (79-100); MONO # 0.7 x10^3/uL (0.0-1.1); MONO % 7 % (0-9); NEUT # 6.2 x10^3/uL (1.8-7.7); NEUT % 61 % (31-73); PLATELET COUNT 230 x10^3/uL (140-400); WHITE BLOOD COUNT 10.1 x10^3/uL (4.0-11.0)
[2021-04-11 19:58] LABS: CALCIUM 8.8 mg/dL (8.5-10.1); CREATININE 0.8 mg/dL (0.6-1.0); GFR 82.6; POTASSIUM 3.5 mmol/L (3.5-5.1)
[2021-04-11 20:03] LABS: ALBUMIN 3.5 g/dL (3.4-5.0); ALBUMIN/GLOBULIN RATIO 0.9 (1.0-1.7); TOTAL BILIRUBIN 0.3 mg/dL (0.2-1.0); TOTAL PROTEIN 7.2 g/dL (6.4-8.2)
--- NOTE | 2021-04-11 20:53 | RAD ---
Exam: CT of abdomen and pelvis without contrast INDICATION: Right flank pain TECHNIQUE: Sequential axial images through the abdomen and pelvis obtained without IV contrast. Sagit richelle and coronal reformatted images were reconstructed from the axial data and reviewed. Exposure: One or more of the following in the visualized dose reduction techniques were utilized for this examination: 1. Automated exposure control 2. Adjustment of the MA and/or KV according to patient size 3. Use of iterative of reconstructive technique Comparisons: None FINDINGS: Heart size is normal. No pericardial effusion. Strandy opacities at dependent portion lungs likely re presenting atelectasis No pleural effusion. Evaluation of the solid organs limited secondary to noncontrast technique. Diffuse hepatic steatosis. Spleen, pancreas, and adrenals are unremarkable. Gallbladder is decompress ed. No perinephric inflammation or hydronephrosis. Nonobstructing right renal calculus is noted. No urete ral calculi are identified. Bladder is decompressed not well evaluated. Uterus is not enlarged. Cystic lesion at the left adnexa which measures up to 4.6 cm in long axis. Large and small bowel are unremarkable. Appendix is normal. No free intra-abdominal air or fluid. No obstruction. Abdominal aorta has a normal course and caliber. No enlarged abdominal lymph nodes are identified. No suspicious osseous lesions or acute fractures. IMPRESSION: 1. No acute process identified within the abdomen or pelvis. 2. Diffuse hepatic steatosis. Electronically signed by: Milo Concepcion MD (04/11/2021 8:51 PM) [facility]
[2021-04-11] MEDS ORDERED: HYDR-2761 PO ×2 (22:21→22:40)
[2021-04-11 22:30] VITALS: BP 118/61
[2021-04-11] MEDS ORDERED: HYDROcodone/APAP 5/325MG 1 TAB TABLET PO ONE (23:30)
== END 2021-04-11 23:15 | disposition home or self-care (01) ==
LOC: ER 19:13
DX: R10.31 Right lower quadrant pain (principal); G43.909 Migraine, unspecified, not intractable, without status migrainosus; Z96.0 Presence of urogenital implants; Z98.51 Tubal ligation status; Z87.442 Personal history of urinary calculi; Z88.2 Allergy status to sulfonamides
CPT/HCPCS: 36415; 74176; 80053; 85025; 96374; 99285; J1885